=== PATIENT | male | born 1975 | race Asian ===

== ENCOUNTER 2025-01-24 16:32 | Emergency (ER) | payer OTHER ==
[~2025-01-24] VITALS: Ht 175.3 cm; Wt 90.9 kg
[2025-01-24 16:35] VITALS: BP 126/90; PULSE 102; RESP 18; TEMP 98.4; O2SAT 99
[2025-01-24] MEDS ORDERED: LISI-892 PO (16:39)
[2025-01-24] MEDS ORDERED: METF-1211 PO (16:39)
== END 2025-01-24 21:17 | disposition left against medical advice (07) ==
LOC: EMS 16:32
DX: H57.12 Ocular pain, left eye (principal); R73.9 Hyperglycemia, unspecified; Z53.21 Procedure and treatment not carried out due to patient leaving prior to being seen by health care provider
CPT/HCPCS: 82962; 99281